=== PATIENT | male | born 1940 | race Caucasian/White ===

== ENCOUNTER → 2024-10-09 | Outpatient (CLI) | payer MEDICARE ==
--- NOTE | 2024-10-09 08:00 | MR ---
EXAMINATION TYPE: MR Prostate wo/w con DATE OF EXAM: 10/09/2024 7:18 AM COMPARISON: None. CLINICAL INDICATION: Male, 83 years old with history of R97.20 ELEVATED PROSTATE SPECIFIC ANTIGEN [PS A]; Elevated PSA. TECHNIQUE: Multi-planar, multi-sequence imaging of the pelvis is performed prior to and following the uncomplicated administration of bolus intravenous gadolinium. IV Contrast: 6 mL Gadobutrol Interpretive Criteria: PI-RADS v2.1 SERUM PSA: 6.750 on 08-15-24, 5.2 on 09-29-23. SURGICAL PATHOLOGY: No data available. FINDINGS: Prostatic dimensions: 5.3 x 4.2 x 3.0 cm. "Bullet" Volume:43.71 (PSA density=0.15 ng/mL/mL) CENTRAL GLAND (Central and Transition Zones/CZ+TZ): Multiple bilateral, heterogenous appearing hypertrophic stromal nodules, without suspicious lesion. ( PI-RADS 2) PERIPHERAL ZONE (PZ): Low T2 signal region in the right posterior lateral peripheral zone of the base series 501 image 21 i s thought to have slightly elevated DWI signal and arterial enhancement and measures 9 mm (PI-RADS 4) SEMINAL VESICLES (SV): Symmetric and unremarkable. PERIPROSTATIC TISSUES: Unremarkable. LYMPH NODES: No enlarged pelvic lymph node. REMAINING PELVIS: Bladder wall is within normal limits given distention. No abnormal free or organized intrapelvic fluid collection. No pathologic bowel dilation or mural thickening. Colonic diverticula are present. No hernia visualized OSSEOUS STRUCTURES: No suspicious osseous abnormality. IMPRESSION: 1. PI-RADS 4 Lesion in the right posterior lateral peripheral swelling base measuring 9 mm 2. Mild BPH, estimated gland volume 43.71 (PSA density=0.15 ng/mL/mL) 3. No suspicious osseous lesion. No lymphadenopathy. No evidence of prostate adenocarcinoma involving the periprostatic tissues. [facility], , 10/09/2024 7:57 AM
== END | disposition home or self-care (01) ==
LOC: RADMRIMAIN 06:21
PROVIDERS: ATTEND Urology
DX: N40.0 Benign prostatic hyperplasia without lower urinary tract symptoms (principal); R97.20 Elevated prostate specific antigen [PSA]
CPT/HCPCS: 72197; A9585